=== PATIENT | female | born 1985 | race Asian ===

== ENCOUNTER 2019-12-28 17:07 | Emergency (ER) | payer OTHER, SELFPAY ==
[2019-12-28] VITALS (7 sets, daily range): BP systolic 113–153; BP diastolic 55–69; PULSE 82–125; RESP 16–18; TEMP 37.5–37.6; O2SAT 98–100; BMI 23.6
--- NOTE | 2019-12-28 17:39 | DI.RAD.S_ITS ---
PROCEDURE: XR CHEST 1V INDICATIONS: flu-like symptoms TECHNIQUE: One view of the chest was acquired. COMPARISON: None. FINDINGS: Surgical changes and devices: None. Lungs and pleura: Minimal opacity in the mid right lung field. No pleural effusions or pneumothorax. Mediastinum: Mediastinal contours appear normal. Heart size is normal. Bones and chest wall: No suspicious bony lesions. Overlying soft tissues appear unremarkable. IMPRESSION: Minimal opacity in the mid right lung field. This could represent infectious/inflammatory etiology including COVID or atelectasis. Dictated by: Aubrey Davies M.D. on 12/28/2019 at 18:48 Approved by: Aubrey Davies M.D. on 12/28/2019 at 18:49
[2019-12-28] MEDS: KETOROLAC 60 MG/2 ML VIAL 30 MG IV (18:02)
[2019-12-28] MEDS: ONDANSETRON 4 MG/2 ML INJ IV (18:03)
[2019-12-28] MEDS: SODIUM CHLORIDE 0.9% 1,000 ML 1000 ML IV (18:03)
[2019-12-28 18:11] LABS: Basophils Absolute Auto 100 /uL (0-100); Basophils Percent Auto 1.3 % (0-2); Eosinophils Absolute Auto 0 /uL (0-450); Eosinophils Percent Auto 0.4 % (2-4); Hematocrit 31.1 % (36-46); Hemoglobin 9.6 g/dL (12.0-16.0); Lymphocytes Absolute Auto 400 /uL (1100-4500); Mean Corpuscular HGB Conc 30.8 % (30-36); Mean Corpuscular Hemoglobin 18.8 PG (26-34); Mean Corpuscular Volume 60.9 fL (80-100); Monocytes Absolute Auto 1000 /uL (0-900); Monocytes Percent Auto 11.4 % (3-14); Neutrophils Absolute Auto 7200 /uL (1500-7000); Neutrophils Percent Auto 81.9 % (50-75); Platelet Count 127 X10^3/uL (150-400); Red Blood Cell Count 5.11 X10^6/uL (4.0-5.2); Red Cell Distribution Width 22.8 % (11.6-14.8); White Blood Cell Count 8.8 X10^3/uL (4.5-11.0)
[2019-12-28 18:13] LABS: Add Manual Diff / Slide Review SLIDE REVIEW
[2019-12-28 18:17] LABS: Alanine Aminotransferase 27 IU/L (<35); Albumin 4.7 g/dL (3.5-5.0); Albumin Globulin Ratio 1.4 (1.0-2.8); Alkaline Phosphatase 46 U/L (38-126); Aspartate Aminotransferase 31 IU/L (14-36); BUN Creatinine Ratio 19.2 (6-22); Bilirubin Total 2.4 mg/dL (0.2-1.3); Blood Urea Nitrogen 10 mg/dL (7-17); Carbon Dioxide 24 mmol/L (22-32); Chloride 100 mmol/L (98-107); Creatine Kinase 36 U/L (30-135); Estimated Glomerular Filt Rate > 60.0 mL/min (>60); Globulin 3.3 g/dL (1.7-4.1); Glucose 100 mg/dL (70-100); HEMOLYSIS < 15 (0-50); Potassium 3.4 mmol/L (3.4-5.1); Sodium 133 mmol/L (137-145)
[2019-12-28 18:28] LABS: C-Reactive Protein Quant < 0.5 mg/dL (<1.0)
[2019-12-28 18:29] LABS: NT-proBNP (BNP-Adult 18+) 35 pg/mL (<125); Troponin I < 0.012 ng/mL (0.01-0.034)
[2019-12-28 18:38] LABS: D Dimer < 200 ng/mL (<230)
--- NOTE | 2019-12-28 18:40 | ED.FEVER ---
HPI - Fever <MARCO A Arshad - Last Filed: 12/28/19 20:53> General Chief Complaint: Fever Stated Complaint: headache, 102 temp, sore, chest heaviness, nausea Time Seen by Provider: 12/28/19 17:12 Source: patient Mode of arrival: Ambulatory Limitations: no limitations History of Present Illness HPI Narrative: The patient is a 34-year-old female nonsmoker with history of thalassemia who presents with a chief complaint of headache, temperature of 102?, muscle aches chills, shortness of breath, difficulty breathing, and nausea. She was working as a caregiver, had sudden onset of symptoms at approximately 3:00 p.m.. She has no known coronavirus exposures, but is very worried about that. She took 2 Tylenol when she noticed her fevers at high. Denies any vomiting but did have an episode of nausea. No neck pain or sore throat. No ear pain. She denies any cough. She denies any abdominal pain. She denies any urinary symptoms. She does not have any primary care provider in the area she recently moved from [place]. Related Data Previous Rx's Medication Instructions Recorded ondansetron 4 mg PO Q6H PRN #14 tab 12/28/19 Allergies Allergy/AdvReac Type Severity Reaction Status Date / Time No Known Drug Allergies Allergy Verified 12/28/19 17:22 Review of Systems <JESSE Arshad - Last Filed: 12/28/19 20:53> Review of Systems Narrative: GENERAL: See HPI HEENT: Denies sinus pain, ear pain, sore throat, difficulty swallowing, dizziness. RESPIRATORY: See HPI CARDIOVASCULAR: See HPI GASTROINTESTINAL: See HPI : Denies dysuria, frequency, incontinence, hematuria, urinary retention. MUSCULOSKELETAL: denies weakness, joint pain, or bony pain SKIN: Denies rash, skin lesions, or other NEUROLOGIC: Denies weakness, headache, numbness, change in speech, confusion, seizures, incoordination. PSYCHIATRIC: No concerning psychosocial issues. 12 point review of systems is negative except for those stated above Patient History <MARCO A Arshad - Last Filed: 12/28/19 20:53> Social History Smoking Status: Never smoker Smoking Status: Never smoker alcohol intake frequency: holidays/special occasions only Substance Use Type: does not use Exam <JAMESON Arshad-ALVIN - Last Filed: 12/28/19 20:53> Narrative Exam Narrative: GENERAL: This is a well-nourished, well-developed patient, in no acute distress HEAD: Atraumatic. Normocephalic. No temporal or scalp tenderness. EYES: Pupils equal round and reactive. Extraocular motions intact. No scleral icterus. No injection or drainage. ENT: Nose without bleeding, purulent drainage or septal hematoma. Throat without erythema, tonsillar hypertrophy or exudate. Uvula midline. Airway patent. NECK: Trachea midline. No JVD or lymphadenopathy. Supple, nontender, no meningeal signs. Able to look is healing, able to put chin to chest. CARDIOVASCULAR: Tachycardic rate and regular rhythm RESPIRATORY: Clear to auscultation. Breath sounds equal bilaterally. No wheezes, rales, or rhonchi. No cough. No increased respiratory effort. No accessory muscle use. GASTROINTESTINAL: Abdomen soft, non-tender, nondistended. No hepato-splenomegaly, or palpable masses. No guarding. Active bowel sounds all 4 quadrants EXTREMITIES: No clubbing, cyanosis, or edema. No joint tenderness, effusion, or edema noted. BACK: Nontender without deformity or crepitance. No flank tenderness. NEURO: AOx3. SKIN: No rash or erythema on visible skin Initial Vital Signs Initial Vital Signs: Vital Signs Temperature 99.7 F H 12/28/19 17:20 Pulse Rate 125 H 12/28/19 17:20 Respiratory Rate 16 12/28/19 17:20 Blood Pressure 153/68 H 12/28/19 17:20 Pulse Oximetry 98 12/28/19 17:20 <Junior Sauceda DO - Last Filed: 12/28/19 23:35> Initial Vital Signs Initial Vital Signs: Vital Signs Temperature 99.7 F H 12/28/19 17:20 Pulse Rate 125 H 12/28/19 17:20 Respiratory Rate 16 12/28/19 17:20 Blood Pressure 153/68 H 12/28/19 17:20 Pulse Oximetry 98 12/28/19 17:20 Scores <JAMESON Arshad-BC - Last Filed: 12/28/19 20:53> GCS [place] coma scale eye opening: Spontaneous [place] coma scale verbal response: Orientated [place] coma scale motor response: Obey commands [place] coma scale total score: 15 Course <KHANH ArshadP-BC - Last Filed: 12/28/19 20:53> Orders Ordered: ED Orders 12/28/19 17:39 XR chest 1V Stat EKG-12 Lead Stat 12/28/19 17:55 C-Reactive Protein Quant Stat Complete Blood Count AUTO DIFF Stat Comprehensive Metabolic Panel Stat D Dimer Stat NT-proBNP (BNP-Adult 18+) Stat Procalcitonin Stat Troponin & CK Cardiac Panel Stat 12/28/19 19:12 CT chest wo con Stat Discontinued Medications Acetaminophen (Tylenol) 650 mg PO NOW ONE Stop: 12/28/19 18:51 Last Admin: 12/28/19 18:55 Dose: 650 mg Documented by: JYOTSNA Sodium Chloride (Normal Saline 0.9%) 1,000 mls @ 1,000 mls/hr IV BOLUS ONE Stop: 12/28/19 18:41 Last Infusion: 12/28/19 19:17 Dose: 0 mls/hr Documented by: Admin: 12/28/19 18:03 Dose: 1,000 mls/hr Documented by: TOMMIE Ketorolac Tromethamine (Toradol) 30 mg IV NOW ONE Stop: 12/28/19 17:40 Last Admin: 12/28/19 18:02 Dose: 30 mg Documented by: TOMMIE Ondansetron HCl (Zofran) 4 mg IV NOW ONE Stop: 12/28/19 17:43 Last Admin: 12/28/19 18:03 Dose: 4 mg Documented by: TOMMIE Vital Signs Vital signs: Vital Signs - 8 hr 12/28/19 17:20 12/28/19 17:23 12/28/19 17:30 Temperature 99.7 F H Pulse Rate 125 H 118 H 114 H Respiratory Rate 16 Blood Pressure 153/68 H Pulse Oximetry 98 99 100 12/28/19 18:09 12/28/19 18:30 12/28/19 19:00 Temperature Pulse Rate 104 H 97 H 92 H Respiratory Rate Blood Pressure 113/55 L 115/69 Pulse Oximetry 98 100 100 12/28/19 20:47 Temperature 99.5 F Pulse Rate 82 Respiratory Rate 18 Blood Pressure 113/64 Pulse Oximetry 99 <Junior Sauceda DO - Last Filed: 12/28/19 23:35> Orders Ordered: ED Orders 12/28/19 17:39 XR chest 1V Stat EKG-12 Lead Stat 12/28/19 17:55 C-Reactive Protein Quant Stat Complete Blood Count AUTO DIFF Stat Comprehensive Metabolic Panel Stat D Dimer Stat NT-proBNP (BNP-Adult 18+) Stat Procalcitonin Stat Troponin & CK Cardiac Panel Stat 12/28/19 19:12 CT chest wo con Stat Discontinued Medications Acetaminophen (Tylenol) 650 mg PO NOW ONE Stop: 12/28/19 18:51 Last Admin: 12/28/19 18:55 Dose: 650 mg Documented by: JYOTSNA Sodium Chloride (Normal Saline 0.9%) 1,000 mls @ 1,000 mls/hr IV BOLUS ONE Stop: 12/28/19 18:41 Last Infusion: 12/28/19 19:17 Dose: 0 mls/hr Documented by: Admin: 12/28/19 18:03 Dose: 1,000 mls/hr Documented by: TOMMIE Ketorolac Tromethamine (Toradol) 30 mg IV NOW ONE Stop: 12/28/19 17:40 Last Admin: 12/28/19 18:02 Dose: 30 mg Documented by: TOMMIE Ondansetron HCl (Zofran) 4 mg IV NOW ONE Stop: 12/28/19 17:43 Last Admin: 12/28/19 18:03 Dose: 4 mg Documented by: TOMMIE Vital Signs Vital signs: Vital Signs - 8 hr 12/28/19 17:20 12/28/19 17:23 12/28/19 17:30 Temperature 99.7 F H Pulse Rate 125 H 118 H 114 H Respiratory Rate 16 Blood Pressure 153/68 H Pulse Oximetry 98 99 100 12/28/19 18:09 12/28/19 18:30 12/28/19 19:00 Temperature Pulse Rate 104 H 97 H 92 H Respiratory Rate Blood Pressure 113/55 L 115/69 Pulse Oximetry 98 100 100 12/28/19 20:47 Temperature 99.5 F Pulse Rate 82 Respiratory Rate 18 Blood Pressure 113/64 Pulse Oximetry 99 MDM - Fever <MARCO A Arshad - Last Filed: 12/28/19 20:53> Lab Data Result diagrams: 12/28/19 17:55 12/28/19 17:55 Labs: Lab Results 12/28/19 12/28/19 12/28/19 Range/Units 17:55 17:55 17:55 WBC 8.8 (4.5-11.0) X10^3/uL RBC 5.11 (4.0-5.2) X10^6/uL Hgb 9.6 L (12.0-16.0) g/dL Hct 31.1 L (36-46) % MCV 60.9 L (80-100) fL MCH 18.8 L (26-34) PG MCHC 30.8 (30-36) % RDW 22.8 H (11.6-14.8) % Plt Count 127 L (150-400) X10^3/uL Neut % (Auto) 81.9 H (50-75) % Lymph % (Auto) 5.0 L (25-40) % [place] % (Auto) 11.4 (3-14) % Eos % (Auto) 0.4 L (2-4) % Baso % (Auto) 1.3 (0-2) % Neut # (Auto) 7200 H (7203-5931) /uL Lymph # (Auto) 400 L (5345-1609) /uL [place] # (Auto) 1000 H (0-900) /uL Eos # (Auto) 0 (0-450) /uL Baso # (Auto) 100 (0-100) /uL Platelet Estimate Decreased on smear RBC Morphology See below Polychromasia 2+ H Hypochromasia 3+ H Microcytosis 2+ H Spherocytes 1+ H Target Cells 2+ H Tear Drop Cells 1+ H Schistocytes 1+ H D-Dimer < 200 (<230) ng/mL Sodium 133 L (137-145) mmol/L Potassium 3.4 (3.4-5.1) mmol/L Chloride 100 (98-107) mmol/L Carbon Dioxide 24 (22-32) mmol/L BUN 10 (7-17) mg/dL Creatinine 0.52 (0.52-1.04) mg/dL Estimated GFR > 60.0 (>60) mL/min BUN/Creatinine Ratio 19.2 (6-22) Glucose 100 (70-100) mg/dL Calcium 9.0 (8.4-10.2) mg/dL Total Bilirubin 2.4 H (0.2-1.3) mg/dL AST 31 (14-36) IU/L ALT 27 (<35) IU/L Alkaline Phosphatase 46 (38-126) U/L Total Creatine Kinase 36 (30-135) U/L CK-MB (CK-2) TNP CK-MB (CK-2) Rel Index TNP Troponin I < 0.012 (0.01-0.034) ng/mL C-Reactive Protein (<1.0) mg/dL NT-Pro-B Natriuret Pep 35 (<125) pg/mL Total Protein 8.0 (6.3-8.2) g/dL Albumin 4.7 (3.5-5.0) g/dL Globulin 3.3 (1.7-4.1) g/dL Albumin/Globulin Ratio 1.4 (1.0-2.8) Procalcitonin (<0.5) ng/mL 12/28/19 12/28/19 Range/Units 17:55 17:55 WBC (4.5-11.0) X10^3/uL RBC (4.0-5.2) X10^6/uL Hgb (12.0-16.0) g/dL Hct (36-46) % MCV (80-100) fL MCH (26-34) PG MCHC (30-36) % RDW (11.6-14.8) % Plt Count (150-400) X10^3/uL Neut % (Auto) (50-75) % Lymph % (Auto) (25-40) % [place] % (Auto) (3-14) % Eos % (Auto) (2-4) % Baso % (Auto) (0-2) % Neut # (Auto) (8276-2926) /uL Lymph # (Auto) (2895-1603) /uL [place] # (Auto) (0-900) /uL Eos # (Auto) (0-450) /uL Baso # (Auto) (0-100) /uL Platelet Estimate RBC Morphology Polychromasia Hypochromasia Microcytosis Spherocytes Target Cells Tear Drop Cells Schistocytes D-Dimer (<230) ng/mL Sodium (137-145) mmol/L Potassium (3.4-5.1) mmol/L Chloride (98-107) mmol/L Carbon Dioxide (22-32) mmol/L BUN (7-17) mg/dL Creatinine (0.52-1.04) mg/dL Estimated GFR (>60) mL/min BUN/Creatinine Ratio (6-22) Glucose (70-100) mg/dL Calcium (8.4-10.2) mg/dL Total Bilirubin (0.2-1.3) mg/dL AST (14-36) IU/L ALT (<35) IU/L Alkaline Phosphatase (38-126) U/L Total Creatine Kinase (30-135) U/L CK-MB (CK-2) CK-MB (CK-2) Rel Index Troponin I (0.01-0.034) ng/mL C-Reactive Protein < 0.5 (<1.0) mg/dL NT-Pro-B Natriuret Pep (<125) pg/mL Total Protein (6.3-8.2) g/dL Albumin (3.5-5.0) g/dL Globulin (1.7-4.1) g/dL Albumin/Globulin Ratio (1.0-2.8) Procalcitonin 0.74 H (<0.5) ng/mL Point of Care Testing Test Results Negative Urine Dip Bedside Urine Glucose Negative Bedside Urine Bilirubin - Negative Bedside Urine Ketone +/- 5 Urine Specific [place] 1.015 Bedside Urine Occult Blood - Negative Bedside Urine pH 5.5 Bedside Urine Protein - Negative Bedside Urine Urobilinogen - Negative Bedside Urine Nitrite - Negative Bedside Urine Leukocytes - Negative Esterase Imaging Data CT scan - chest: Radiologist's Impression: [address] [place] [id number] XRay Report Signed Patient: Dede CarlR#: [id number] : 1985Acct:[id number] Age/Sex: 34 / FDate of Service: 12/28/19 Loc: ED Accession Number: [id number] Procedure: XR chest 1V Ordering Provider: Luanne Sharma- PROCEDURE: XR CHEST 1V INDICATIONS: flu-like symptoms TECHNIQUE: One view of the chest was acquired. COMPARISON: None. FINDINGS: Surgical changes and devices: None. Lungs and pleura: Minimal opacity in the mid right lung field. No pleural effusions or pneumothorax. Mediastinum: Mediastinal contours appear normal. Heart size is normal. Bones and chest wall: No suspicious bony lesions. Overlying soft tissues appear unremarkable. IMPRESSION: Minimal opacity in the mid right lung field. This could represent infectious/inflammatory etiology including COVID or atelectasis. Dictated by: Aubrey Davies M.D. on 12/28/2019 at 18:48 Approved by: Aubrey Davies M.D. on 12/28/2019 at 18:49 Chest x-ray: Radiologist's Impression: [address] [place] [id number] Scan Report Signed Patient: Dede Carl#: [id number] : 1985Acct:[id number] Age/Sex: 34 / FDate of Service: 12/28/19 Loc: ED Accession Number: [id number] Procedure: CT chest wo con Ordering Provider: Luanne Sharma- PROCEDURE: CT CHEST WO CON INDICATIONS: right midlung opacity ?covid TECHNIQUE: Noncontrast 2.0-2.5 mm thick sections acquired from the pulmonary apices to the posterior costophrenic angles. 7 mm thick axial MIP and 5 mm coronal and sagittal reformats were then acquired. A low radiation dose technique was utilized. COMPARISON: None. FINDINGS: Image quality: Diagnostic, given the low radiation dose technique. Lungs and pleura: There is minimal streaky opacity at the right upper lobe as well as at the left lung base. This has the appearance of atelectasis. No patchy ground-glass opacity to suggest significant infectious/inflammatory etiologies such as Covid-19. No consolidative opacity. No pleural effusion. No pneumothorax. No mass or significant pulmonary nodules. 3 mm pulmonary nodule at the left major fissure. Mediastinum: Heart size is normal. No pericardial effusion. No mediastinal adenopathy by size criteria. Thoracic aorta and central pulmonary arteries are normal in size. Esophagus is normal in caliber. No hiatal hernia. Bones and chest wall: No suspicious bony lesions. No vertebral body compression fractures. No axillary or supraclavicular adenopathy by size criteria. Thyroid gland is unremarkable. Abdomen: Post cholecystectomy. Visualized upper abdomen solid organs and bowel loops appear normal in the absence of contrast. IMPRESSION: Minimal streaky opacity in the right upper lobe and left lower lung which has the appearance of atelectasis. No significant ground-glass opacity to suggest infectious/inflammatory etiology. Dictated by: Aubrey Davies M.D. on 12/28/2019 at 19:46 Approved by: Aubrey Davies M.D. on 12/28/2019 at 19:51 ECG Data Attestation: I personally reviewed and interpreted this ECG as follows: Interpretation: Sinus rhythm. Ventricular rate 80. pr 173. qr s86 MDM Narrative Medical decision making narrative: The patient is a 34-year-old female who presents with sudden-onset shortness of breath, fever, nausea no vomiting. Her presentation is suspicious for coronavirus at this point time. Chest x-ray as possible mid lung opacity on right side, CT shows no ground-glass opacities. Otherwise urine has no signs of infection, patient overall appears well and feels much improved after doses of Tylenol and IV fluids. She has no meningeal signs,. I discussed at length the importance of following up with primary care provider gave the patient contact information to the [facility] health technology resource teacher. I discussed that she does have an incidental finding of a pulmonary nodule that will need follow-up. Patient overall feels much improved. Work note given. Did discuss at length acting as though she is sick until her coronavirus test comes back. Discussed coming back to the emergency department for any acute concerns. Patient has no questions or concerns upon discharge and states understanding of return precautions as well as follow-up care. <Junior Sauceda, DO - Last Filed: 12/28/19 23:35> Lab Data Labs: Lab Results 12/28/19 12/28/19 12/28/19 Range/Units 17:55 17:55 17:55 WBC 8.8 (4.5-11.0) X10^3/uL RBC 5.11 (4.0-5.2) X10^6/uL Hgb 9.6 L (12.0-16.0) g/dL Hct 31.1 L (36-46) % MCV 60.9 L (80-100) fL MCH 18.8 L (26-34) PG MCHC 30.8 (30-36) % RDW 22.8 H (11.6-14.8) % Plt Count 127 L (150-400) X10^3/uL Neut % (Auto) 81.9 H (50-75) % Lymph % (Auto) 5.0 L (25-40) % [place] % (Auto) 11.4 (3-14) % Eos % (Auto) 0.4 L (2-4) % Baso % (Auto) 1.3 (0-2) % Neut # (Auto) 7200 H (2022-0194) /uL Lymph # (Auto) 400 L (3080-6385) /uL [place] # (Auto) 1000 H (0-900) /uL Eos # (Auto) 0 (0-450) /uL Baso # (Auto) 100 (0-100) /uL Platelet Estimate Decreased on smear RBC Morphology See below Polychromasia 2+ H Hypochromasia 3+ H Microcytosis 2+ H Spherocytes 1+ H Target Cells 2+ H Tear Drop Cells 1+ H Schistocytes 1+ H D-Dimer < 200 (<230) ng/mL Sodium 133 L (137-145) mmol/L Potassium 3.4 (3.4-5.1) mmol/L Chloride 100 (98-107) mmol/L Carbon Dioxide 24 (22-32) mmol/L BUN 10 (7-17) mg/dL Creatinine 0.52 (0.52-1.04) mg/dL Estimated GFR > 60.0 (>60) mL/min BUN/Creatinine Ratio 19.2 (6-22) Glucose 100 (70-100) mg/dL Calcium 9.0 (8.4-10.2) mg/dL Total Bilirubin 2.4 H (0.2-1.3) mg/dL AST 31 (14-36) IU/L ALT 27 (<35) IU/L Alkaline Phosphatase 46 (38-126) U/L Total Creatine Kinase 36 (30-135) U/L CK-MB (CK-2) TNP CK-MB (CK-2) Rel Index TNP Troponin I < 0.012 (0.01-0.034) ng/mL C-Reactive Protein (<1.0) mg/dL NT-Pro-B Natriuret Pep 35 (<125) pg/mL Total Protein 8.0 (6.3-8.2) g/dL Albumin 4.7 (3.5-5.0) g/dL Globulin 3.3 (1.7-4.1) g/dL Albumin/Globulin Ratio 1.4 (1.0-2.8) Procalcitonin (<0.5) ng/mL 12/28/19 12/28/19 Range/Units 17:55 17:55 WBC (4.5-11.0) X10^3/uL RBC (4.0-5.2) X10^6/uL Hgb (12.0-16.0) g/dL Hct (36-46) % MCV (80-100) fL MCH (26-34) PG MCHC (30-36) % RDW (11.6-14.8) % Plt Count (150-400) X10^3/uL Neut % (Auto) (50-75) % Lymph % (Auto) (25-40) % [place] % (Auto) (3-14) % Eos % (Auto) (2-4) % Baso % (Auto) (0-2) % Neut # (Auto) (6306-2516) /uL Lymph # (Auto) (0989-1890) /uL [place] # (Auto) (0-900) /uL Eos # (Auto) (0-450) /uL Baso # (Auto) (0-100) /uL Platelet Estimate RBC Morphology Polychromasia Hypochromasia Microcytosis Spherocytes Target Cells Tear Drop Cells Schistocytes D-Dimer (<230) ng/mL Sodium (137-145) mmol/L Potassium (3.4-5.1) mmol/L Chloride (98-107) mmol/L Carbon Dioxide (22-32) mmol/L BUN (7-17) mg/dL Creatinine (0.52-1.04) mg/dL Estimated GFR (>60) mL/min BUN/Creatinine Ratio (6-22) Glucose (70-100) mg/dL Calcium (8.4-10.2) mg/dL Total Bilirubin (0.2-1.3) mg/dL AST (14-36) IU/L ALT (<35) IU/L Alkaline Phosphatase (38-126) U/L Total Creatine Kinase (30-135) U/L CK-MB (CK-2) CK-MB (CK-2) Rel Index Troponin I (0.01-0.034) ng/mL C-Reactive Protein < 0.5 (<1.0) mg/dL NT-Pro-B Natriuret Pep (<125) pg/mL Total Protein (6.3-8.2) g/dL Albumin (3.5-5.0) g/dL Globulin (1.7-4.1) g/dL Albumin/Globulin Ratio (1.0-2.8) Procalcitonin 0.74 H (<0.5) ng/mL Point of Care Testing Test Results Negative Urine Dip Bedside Urine Glucose Negative Bedside Urine Bilirubin - Negative Bedside Urine Ketone +/- 5 Urine Specific [place] 1.015 Bedside Urine Occult Blood - Negative Bedside Urine pH 5.5 Bedside Urine Protein - Negative Bedside Urine Urobilinogen - Negative Bedside Urine Nitrite - Negative Bedside Urine Leukocytes - Negative Esterase Discharge Plan Departure Patient Disposition: Home Clinical Impression: Incidental pulmonary nodule Fever Qualifiers: Fever type: unspecified Qualified Code(s): R50.9 - Fever, unspecified Discharge Date/Time: 12/28/19 20:47 Instructions: DI for Fever (Symptom) -- Adult, DI for Pulmonary Nodule, DI for COVID-19 (Suspected or Confirmed ), Can COVID-19 be prevented? Activity Restrictions/Additional Instructions: Thank you for trusting us with your care today. I am sorry your feeling poorly and hope you feel better soon. I sent a prescription of ondansetron for nausea to [facility] in [place] I have given you a work note for several days off of work. As discussed, your coronavirus test will take approximately 2 days to come back. We will call you with the results come in, whether they are positive or negative. In the meantime, please use [id number] medications as needed and able. We did have an incidental finding of a 3 mm pulmonary nodule of your left lung. Please follow-up with primary care provider regarding this. Please act as though you are sick, please self isolate cover your cough since these is etcetera. As discussed please come back to emergency department for any acute concerns such as increased shortness of breath etcetera Prescriptions: New ondansetron 4 mg tablet,disintegrating 4 mg PO Q6H PRN (Reason: nausea and vomiting) Qty: 14 RF: 0 Referrals: [facility] [Outside] Stand Alone Forms: Work Release Note <Junior Sauceda DO - Last Filed: 12/28/19 23:35> Cosign ED Attending Cosignature Attestation: I was immediately available in the department for consultation. This documentation has been reviewed and I agree with assessment and plan. Supervised by Junior Sauceda DO
[2019-12-28 18:47] LABS: Hypochromasia 3+; Platelet Estimate Decreased on smear
[2019-12-28 18:48] LABS: Microcytosis 2+; Polychromasia 2+; Target Cells 2+; Tear Drop Cells 1+
[2019-12-28 18:49] LABS: Schistocytes 1+; Spherocytes 1+
[2019-12-28 18:54] LABS: Procalcitonin 0.74 ng/mL (<0.5)
[2019-12-28] MEDS: ACETAMINOPHEN 325 MG TABLET 650 MG PO (18:55)
--- NOTE | 2019-12-28 19:12 | DI.CT.S_ITS ---
PROCEDURE: CT CHEST WO CON INDICATIONS: right midlung opacity ?covid TECHNIQUE: Noncontrast 2.0-2.5 mm thick sections acquired from the pulmonary apices to the posterior costophrenic angles. 7 mm thick axial MIP and 5 mm coronal and sagittal reformats were then acquired. A low radiation dose technique was utilized. COMPARISON: None. FINDINGS: Image quality: Diagnostic, given the low radiation dose technique. Lungs and pleura: There is minimal streaky opacity at the right upper lobe as well as at the left lung base. This has the appearance of atelectasis. No patchy ground-glass opacity to suggest significant infectious/inflammatory etiologies such as Covid-19. No consolidative opacity. No pleural effusion. No pneumothorax. No mass or significant pulmonary nodules. 3 mm pulmonary nodule at the left major fissure. Mediastinum: Heart size is normal. No pericardial effusion. No mediastinal adenopathy by size criteria. Thoracic aorta and central pulmonary arteries are normal in size. Esophagus is normal in caliber. No hiatal hernia. Bones and chest wall: No suspicious bony lesions. No vertebral body compression fractures. No axillary or supraclavicular adenopathy by size criteria. Thyroid gland is unremarkable. Abdomen: Post cholecystectomy. Visualized upper abdomen solid organs and bowel loops appear normal in the absence of contrast. IMPRESSION: Minimal streaky opacity in the right upper lobe and left lower lung which has the appearance of atelectasis. No significant ground-glass opacity to suggest infectious/inflammatory etiology. Dictated by: Aubrey Davies M.D. on 12/28/2019 at 19:46 Approved by: Aubrey Davies M.D. on 12/28/2019 at 19:51
[2019-12-31 11:36] LABS: COVID19 Sendout Not Detected (Not Detected)
== END 2019-12-28 20:47 | disposition home or self-care (01) ==
PROVIDERS: Emergency Provider Nurse Practitioner Family
DX: Z03.818 Encounter for observation for suspected exposure to other biological agents ruled out (principal); R91.1 Solitary pulmonary nodule; R50.9 Fever, unspecified; R06.02 Shortness of breath; R11.0 Nausea
CPT/HCPCS: 36415; 71045; 71250; 80053; 81003; 81025; 82550; 83880; 84145; 84484; 85025; 85379; 86140; 87635; 93005; 96361; 96374; 96375; 99284; J1885; J2405

== ENCOUNTER 2020-08-13 14:40 | Emergency (ER) | payer OTHER, SELFPAY ==
[2020-08-13 14:43] VITALS: BP 153/70; PULSE 75; RESP 22; TEMP 37.1; O2SAT 100
--- NOTE | 2020-08-13 15:05 | DI.CT.S_ITS ---
PROCEDURE: CT HEAD/BRAIN WO CON INDICATIONS: severe headache for one week TECHNIQUE: Noncontrast 4.5 mm thick angled axial sections acquired from the foramen magnum to the vertex, with coronal and sagittal reformats. For radiation dose reduction, the following was used: automated exposure control, adjustment of mA and/or kV according to patient size. COMPARISON: None. FINDINGS: Image quality: Excellent. CSF spaces: Basal cisterns are patent. No extra-axial fluid collections. Ventricles are normal in size and shape. Brain: No midline shift. No intracranial masses or hemorrhage. Nicholson-white matter interface is normal. Skull and face: Calvarium and visualized facial bones are intact, without suspicious lesions. Sinuses: Visualized sinuses and mastoids are clear. IMPRESSION: No acute intracranial abnormality. Dictated by: Nolan Mendoza M.D. on 08/13/2020 at 15:20 Approved by: Nolan Mendoza M.D. on 08/13/2020 at 15:21
[2020-08-13] MEDS: METOCLOPRAMIDE 10 MG/2 ML INJ IV (15:20)
[2020-08-13] MEDS: SODIUM CHLORIDE 0.9% 1,000 ML 1000 ML IV (15:20)
[2020-08-13] MEDS: KETOROLAC 60 MG/2 ML VIAL 15 MG IV (15:20)
[2020-08-13] MEDS: diphenhydrAMINE 50 MG/ML VIAL 25 MG IV (15:24)
[2020-08-13 15:47] LABS: BUN Creatinine Ratio 29.8 (6-22); Blood Urea Nitrogen 14 mg/dL (7-17); Calcium 8.9 mg/dL (8.4-10.2); Carbon Dioxide 27 mmol/L (22-32); Chloride 101 mmol/L (98-107); Estimated Glomerular Filt Rate > 60.0 mL/min (>60); Glucose 88 mg/dL (70-100); HEMOLYSIS < 15 (0-50); Potassium 3.7 mmol/L (3.4-5.1); Sodium 136 mmol/L (137-145)
--- NOTE | 2020-08-13 15:50 | ED.HA ---
HPI - Headache <ARYA Gerber - Last Filed: 08/13/20 18:58> General Chief Complaint: Headache Stated Complaint: bad headache lasting for a few days, nauseated Time Seen by Provider: 08/13/20 14:52 Source: patient Mode of arrival: Ambulatory Limitations: no limitations History of Present Illness HPI Narrative: This is a 35 year female, nonsmoker, who has past medical history for thalassemia, environmental allergies and uses albuterol regularly presents to ED with chief complain of 1 week duration of severe headache, all over in her head. Patient reports starting to have nausea and 3 episodes of vomiting today. She also reports dizziness and spinning sensation which does not make difference with movements of her head and describes as foggy and hazy in the head. She has been using Tylenol 1000 mg up to 2 times a day to treat headache but not effective. Patient unilateral headaches in the past and usually improves after taking a dose of Tylenol. Patient denies fever, chills, recent illness, known exposure to illness, unusual rashes. Patient received COVID vaccination 2 weeks ago. Patient had Mirena in placed and has her as a ride. She declined test stating no chances for the . Onset (ago): day(s) Related Data Previous Rx's Medication Instructions Recorded ondansetron 4 mg PO Q6H PRN #14 tab 12/28/19 ondansetron 4 mg PO Q8H PRN #7 tab 08/13/20 Allergies Allergy/AdvReac Type Severity Reaction Status Date / Time No Known Drug Allergies Allergy Verified 12/28/19 17:22 Review of Systems <ARYA Gerber - Last Filed: 08/13/20 18:58> Review of Systems Narrative: General: Denies fever, chills, fatigue, malaise, sweats. HEENT: Denies sinus pain, ear pain, sore throat, difficulty swallowing, dizziness. Respiratory: Denies dyspnea, cough, wheezing, hemoptysis, sputum. Cardiovascular: Denies chest pain, palpitations, orthopnea, edema. Gastrointestinal: See HPI : Denies dysuria, frequency, incontinence, hematuria, urinary retention. Musculoskeletal: Denies weakness, joint pain or bony pain. Skin: Denies rash, skin lesions, or other. Neurologic: See HPI Psychiatric: No concerning psychosocial issues. 12-point review of systems is negative except for those stated above. Patient History <ARYA Gerber - Last Filed: 08/13/20 18:58> Social History Smoking Status: Never smoker Smoking Status: Never smoker alcohol intake frequency: holidays/special occasions only Substance Use Type: does not use Exam <ARYA Gerber - Last Filed: 08/13/20 18:58> Narrative Exam Narrative: GEN: Alert, oriented x 3, well nourished, and appears to be in moderate discomfort. Head: Normal cephalic, atraumatic. No scalp or temporal tenderness, palpable mass or rash. EYES: Pupils are equal, round, and reactive to light and accommodation. Extraocular muscles are intact bilaterally. There is no subconjunctival hemorrhage, exudate and sclera non-icteric. ENT: Bilateral auditory canals and tympanic membranes clear. Hearing grossly intact. Nose without bleeding, purulent discharge, septal hematoma or deviation. Turbinate without erythema or swelling. Facial sinuses nontender to palpate. Mucous membrane moist, no mucosal lesion. Throat without erythema, tonsillar hypertrophy or exudate. Uvula in midline, airway patent. Neck: Trachea in midline. No JVD, non-tender without lymphadenopathy. No masses or thyroid megaly. Supple, non-tender and no meningeal signs. CARDIAC: Normal regular rate and rhythm without murmurs, gallops, or rubs. No chest wall tenderness. No peripheral edema, cyanosis or pallor. Capillary refill is less than 2 seconds. No carotid bruits. RESPIRATORY: Lungs are cleat to auscultate bilaterally. No cough, wheezes, rales, or rhonchi. No stridor, respiratory distress, increase work of breathing, or accessary muscle used. ABD: Abdomen soft, nontender and non-distended. No guarding or rebound tenderness to palpate. Bowel sounds are normal in all 4 quadrants. There is no palpable masses or organomegaly. EXT: Full painless ROM of all extremities with no loss of sensation, strength, effusion or edema. SKIN: Warm, dry, normal color for patient. No erythema, lesions or rash. BACK: Nontender without deformity or crepitance. No flank tenderness. NEUROLOGICAL: Alert and oriented to place, time and person. No facial droops, dysphasia. CN II-XII intact. Strength and sensation symmetric and intact throughout. PSYCHIATRIC: Good judgement and reason, without hallucinations, abnormal affect or abnormal behaviors during the examination. Patient is not suicidal. Initial Vital Signs Initial Vital Signs: Vital Signs Temperature 98.7 F 08/13/20 14:43 Pulse Rate 75 08/13/20 14:43 Respiratory Rate 22 08/13/20 14:43 Blood Pressure 153/70 H 08/13/20 14:43 Pulse Oximetry 100 08/13/20 14:43 <Junior Sauceda DO - Last Filed: 08/14/20 17:54> Initial Vital Signs Initial Vital Signs: Vital Signs Temperature 98.7 F 08/13/20 14:43 Pulse Rate 75 08/13/20 14:43 Respiratory Rate 22 08/13/20 14:43 Blood Pressure 153/70 H 08/13/20 14:43 Pulse Oximetry 100 08/13/20 14:43 Scores <ARYA Gerber - Last Filed: 08/13/20 18:58> GCS [place] coma scale eye opening: Spontaneous [place] coma scale verbal response: Orientated [place] coma scale motor response: Obey commands [place] coma scale total score: 15 NIH Stroke Scale Level of Conciousness: Alert, keenly responsive Ask month/age: Answers both questions correctly. Open/close eyes, close hand: Performs both tasks correctly Best gaze horizontal: Normal Visual holt: No visual loss Facial palsy: Normal symetrical movement Left arm drift: No drift for full 10 sec Right arm drift: No drift for full 10 sec Left leg drift: No drift for full 5 sec Right leg drift: No drift for full 5 sec Limb ataxia: Absent Sensory on face/arms/legs: Normal, no sensory loss Best language: No aphasia, normal Dysarthria: Normal Extinction or inattention: No abnormality Total NIH Stroke scale score: 0 Course <ARYA Gerber - Last Filed: 08/13/20 18:58> Orders Ordered: Discontinued Medications Diphenhydramine HCl (Diphenhydramine 50 Mg/Ml Vial) 25 mg IV NOW ONE Stop: 08/13/20 15:06 Last Admin: 08/13/20 15:24 Dose: 25 mg Documented by: BTONER Sodium Chloride (Normal Saline 0.9%) 1,000 mls @ 1,000 mls/hr IV BOLUS ONE Stop: 08/13/20 16:04 Last Infusion: 08/13/20 17:30 Dose: 1,000 mls/hr Documented by: Admin: 08/13/20 15:20 Dose: 1,000 mls/hr Documented by: BTONER Ketorolac Tromethamine (Ketorolac 60 Mg/2 Ml Vial) 15 mg IV NOW ONE Stop: 08/13/20 15:09 Last Admin: 08/13/20 15:20 Dose: 15 mg Documented by: ANAONER Metoclopramide HCl (Metoclopramide 10 Mg/2 Ml Inj) 10 mg IV NOW ONE Stop: 08/13/20 15:06 Last Admin: 08/13/20 15:20 Dose: 10 mg Documented by: BTONER Reevaluation(s) Reevaluation #1: Patient reports headache and nausea improved at this time and is able to tolerate ice chips. Time: 17:07 Vital Signs Vital signs: Vital Signs - 8 hr 08/13/20 14:43 08/13/20 17:38 Temperature 98.7 F 98.3 F Pulse Rate 75 72 Respiratory Rate 22 17 Blood Pressure 153/70 H 114/71 Pulse Oximetry 100 100 <Junior Sauceda DO - Last Filed: 08/14/20 17:54> Orders Ordered: Discontinued Medications Diphenhydramine HCl (Diphenhydramine 50 Mg/Ml Vial) 25 mg IV NOW ONE Stop: 08/13/20 15:06 Last Admin: 08/13/20 15:24 Dose: 25 mg Documented by: ANAONER Sodium Chloride (Normal Saline 0.9%) 1,000 mls @ 1,000 mls/hr IV BOLUS ONE Stop: 08/13/20 16:04 Last Infusion: 08/13/20 17:30 Dose: 1,000 mls/hr Documented by: Admin: 08/13/20 15:20 Dose: 1,000 mls/hr Documented by: BTONER Ketorolac Tromethamine (Ketorolac 60 Mg/2 Ml Vial) 15 mg IV NOW ONE Stop: 08/13/20 15:09 Last Admin: 08/13/20 15:20 Dose: 15 mg Documented by: BTONER Metoclopramide HCl (Metoclopramide 10 Mg/2 Ml Inj) 10 mg IV NOW ONE Stop: 08/13/20 15:06 Last Admin: 08/13/20 15:20 Dose: 10 mg Documented by: ANAONER Vital Signs Vital signs: Vital Signs - 8 hr 08/13/20 14:43 08/13/20 17:38 Temperature 98.7 F 98.3 F Pulse Rate 75 72 Respiratory Rate 22 17 Blood Pressure 153/70 H 114/71 Pulse Oximetry 100 100 MDM - Headache <Bryn Riggs-Ingrid [employer] - Last Filed: 08/13/20 18:58> Differential Diagnosis Differential diagnosis: Likely tension headache, subarachnoid hemorrhage, headache, sinusitis and other Medical Records Attestation: I reviewed the patient's medical records. Lab Data Attestation: I reviewed the patient's lab results. Result diagrams: 08/13/20 15:10 08/13/20 15:10 Labs: Lab Results 08/13/20 08/13/20 08/13/20 Range/Units 15:10 15:10 15:10 WBC 6.6 (4.5-11.0) X10^3/uL RBC 5.28 H (4.0-5.2) X10^6/uL Hgb 9.5 L (12.0-16.0) g/dL Hct 32.0 L (36-46) % MCV 60.6 L (80-100) fL MCH 18.0 L (26-34) PG MCHC 29.8 L (30-36) % RDW 20.9 H (11.6-14.8) % Plt Count 187 (150-400) X10^3/uL Neut % (Auto) Not Reportable Lymph % (Auto) Not Reportable [place] % (Auto) Not Reportable Eos % (Auto) Not Reportable Baso % (Auto) Not Reportable Lymph # (Auto) Not Reportable [place] # (Auto) Not Reportable Baso # (Auto) Not Reportable Total Counted 100 Seg Neutrophils % 57.0 (38-70) % Lymphocytes % (Manual) 38.0 (25-45) % Atypical Lymphs % 2.0 H ( - 0) % Monocytes % (Manual) 2.0 (2-11) % Basophils % (Manual) 1.0 (0-1) % Neutrophils # (Manual) 3762 ([id number]) /uL Nucleated RBCs 1 H ( - 0) #/Diff Smudge Cells 1+ H RBC Morphology See below Hypochromasia 3+ H Poikilocytosis 2+ H Anisocytosis 2+ H Microcytosis 2+ H Target Cells 2+ H Tear Drop Cells 2+ H Ovalocytes 2+ H Sodium 136 L (137-145) mmol/L Potassium 3.7 (3.4-5.1) mmol/L Chloride 101 (98-107) mmol/L Carbon Dioxide 27 (22-32) mmol/L BUN 14 (7-17) mg/dL Creatinine 0.47 L (0.52-1.04) mg/dL Estimated GFR > 60.0 (>60) mL/min BUN/Creatinine Ratio 29.8 H (6-22) Glucose 88 (70-100) mg/dL Calcium 8.9 (8.4-10.2) mg/dL Magnesium 2.2 (1.6-2.3) mg/dL Imaging Data CT scan - head: Radiologist's Impression: [address] Scan ReportSigned Patient: Dede CarlR#: [id number]: 1985Acct:[id number]/Sex: 35 / FDate of Service: 08/13/20Loc: EDAccession Number: [id number] Procedure: CT head/brain wo con Ordering Provider: Bryn Brown PROCEDURE: CT HEAD/BRAIN WO CON INDICATIONS: severe headache for one week TECHNIQUE: Noncontrast 4.5 mm thick angled axial sections acquired from the foramen magnum to the vertex, with coronal and sagittal reformats. For radiation dose reduction, the following was used: automated exposure control, adjustment of mA and/or kV according to patient size. COMPARISON: None. FINDINGS: Image quality: Excellent. CSF spaces: Basal cisterns are patent. No extra-axial fluid collections. Ventricles are normal in size and shape. Brain: No midline shift. No intracranial masses or hemorrhage. Nicholson-white matter interface is normal. Skull and face: Calvarium and visualized facial bones are intact, without suspicious lesions. Sinuses: Visualized sinuses and mastoids are clear. IMPRESSION: No acute intracranial abnormality. Dictated by: Nolan Mendoza M.D. on 08/13/2020 at 15:20 Approved by: Nolan Mendoza M.D. on 08/13/2020 at 15:21 [facility] Narrative Medical decision making narrative: This is a 35-year-old female who presents to ED with her with chief complain of severe headache for one week in all over head and today she had nausea and 3 episodes of vomiting. Patient is afebrile with normal heart rate and slightly hypertensive. NIHSS score is 0. Given patient has not had similar headaches before and had not received head CT before, CT of head ordered to rule out organic etiology. Head CT result today is negative for acute findings. CBC today shows H/H of 9.5/32.0 which patient states her baseline. Unremarkable chemistry test results. Patient received IV fluid 1 L normal saline, IV Benadryl, Reglan, and Toradol which resolved headache. She was able to tolerate ice chips and denies nausea at this time. Patient discharged to home with Zofran so that she can hydrate adequately. We discussed return precautions and advised to follow up with primary care physician next 2-3 days and she verbalized understanding in agreement with the treatment plan. <Junior Sauceda, DO - Last Filed: 08/14/20 17:54> Lab Data Labs: Lab Results 08/13/20 08/13/20 08/13/20 Range/Units 15:10 15:10 15:10 WBC 6.6 (4.5-11.0) X10^3/uL RBC 5.28 H (4.0-5.2) X10^6/uL Hgb 9.5 L (12.0-16.0) g/dL Hct 32.0 L (36-46) % MCV 60.6 L (80-100) fL MCH 18.0 L (26-34) PG MCHC 29.8 L (30-36) % RDW 20.9 H (11.6-14.8) % Plt Count 187 (150-400) X10^3/uL Neut % (Auto) Not Reportable Lymph % (Auto) Not Reportable [place] % (Auto) Not Reportable Eos % (Auto) Not Reportable Baso % (Auto) Not Reportable Lymph # (Auto) Not Reportable [place] # (Auto) Not Reportable Baso # (Auto) Not Reportable Total Counted 100 Seg Neutrophils % 57.0 (38-70) % Lymphocytes % (Manual) 38.0 (25-45) % Atypical Lymphs % 2.0 H ( - 0) % Monocytes % (Manual) 2.0 (2-11) % Basophils % (Manual) 1.0 (0-1) % Neutrophils # (Manual) 3762 (5985-1238) /uL Nucleated RBCs 1 H ( - 0) #/Diff Smudge Cells 1+ H RBC Morphology See below Hypochromasia 3+ H Poikilocytosis 2+ H Anisocytosis 2+ H Microcytosis 2+ H Target Cells 2+ H Tear Drop Cells 2+ H Ovalocytes 2+ H Sodium 136 L (137-145) mmol/L Potassium 3.7 (3.4-5.1) mmol/L Chloride 101 (98-107) mmol/L Carbon Dioxide 27 (22-32) mmol/L BUN 14 (7-17) mg/dL Creatinine 0.47 L (0.52-1.04) mg/dL Estimated GFR > 60.0 (>60) mL/min BUN/Creatinine Ratio 29.8 H (6-22) Glucose 88 (70-100) mg/dL Calcium 8.9 (8.4-10.2) mg/dL Magnesium 2.2 (1.6-2.3) mg/dL Discharge Plan Departure Patient Disposition: Home Clinical Impression: Headache Qualifiers: Headache type: unspecified Headache chronicity pattern: acute headache Intractability: not intractable Qualified Code(s): R51.9 - Headache, unspecified Thalassemia Qualifiers: Thalassemia type: unspecified type Qualified Code(s): D56.9 - Thalassemia, unspecified Instructions: Thalassemia, DI for Headache Activity Restrictions/Additional Instructions: You have been diagnosed with [headache, thalassemia. CT of abdomen without acute findings. Labs are assuring except anemia which has been your baseline from the past test]. What to do: *Take your medications as directed. Please take Zofran as needed for nausea and vomiting. Please take [id number] Tylenol and or Motrin as needed for discomfort. Zofran has been transmitted to [facility] in [place]. *Follow up with your primary care provider in 2-3 days, call for an appointment. Let them know you were seen in the ED and that we asked you to be seen in follow up. *Return to ED if you have any new, worsening, or concerning symptoms, such as [worsening headache, signs and symptoms for stroke, chest pain, breathing difficulty, unable to tolerate fluids or any acute concerns]. Prescriptions: New ondansetron 4 mg tablet,disintegrating 4 mg PO Q8H PRN (Reason: nausea and vomiting) Qty: 7 RF: 0 No Action ondansetron 4 mg tablet,disintegrating 4 mg PO Q6H PRN (Reason: nausea and vomiting) Qty: 14 RF: 0 Stand Alone Forms: Work Release Note <Junior Sauceda DO - Last Filed: 08/14/20 17:54> Cosign ED Attending Cosignature Attestation: I was immediately available in the department for consultation. This documentation has been reviewed and I agree with assessment and plan. Supervised by Junior Sauceda DO
[2020-08-13 15:53] LABS: Magnesium 2.2 mg/dL (1.6-2.3)
[2020-08-13 16:08] LABS: Hemoglobin 9.5 g/dL (12.0-16.0); Mean Corpuscular HGB Conc 29.8 % (30-36); Mean Corpuscular Volume 60.6 fL (80-100); Platelet Count 187 X10^3/uL (150-400); Red Blood Cell Count 5.28 X10^6/uL (4.0-5.2); Red Cell Distribution Width 20.9 % (11.6-14.8); White Blood Cell Count 6.6 X10^3/uL (4.5-11.0)
[2020-08-13 16:09] LABS: Add Manual Diff / Slide Review YES
[2020-08-13 16:28] LABS: Anisocytosis 2+; Hypochromasia 3+; Neutrophils Absolute Manual 3762 /uL (3000-5900); Nucleated Red Blood Cells 1 #/Diff; Poikilocytosis 2+; Total Cells Counted 100
[2020-08-13 16:29] LABS: Microcytosis 2+; Ovalocytes 2+; Smudge Cells 1+; Target Cells 2+; Tear Drop Cells 2+
[2020-08-13 17:38] VITALS: BP 114/71; PULSE 72; RESP 17; TEMP 36.8; O2SAT 100
--- NOTE | 2020-08-13 17:44 | PC.NURSE ---
pt states she is feeling better. pt drank water, is not nauseated.
== END 2020-08-13 17:45 | disposition home or self-care (01) ==
PROVIDERS: Emergency Provider Nurse Practitioner Family
DX: R51.9 Headache, unspecified (principal); D56.9 Thalassemia, unspecified; R11.2 Nausea with vomiting, unspecified; R42 Dizziness and giddiness
CPT/HCPCS: 36415; 70450; 80048; 83735; 85007; 85025; 96361; 96374; 96375; 99283; 99284; J1200; J1885; J2765

== ENCOUNTER 2020-10-28 11:52 | Emergency (ER) | payer OTHER, SELFPAY ==
[2020-10-28] VITALS (14 sets, daily range): BP systolic 99–167; BP diastolic 55–109; PULSE 69–88; RESP 16; TEMP 37.4; O2SAT 95–100; BMI 24.3
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
--- NOTE | 2020-10-28 12:37 | DI.CT.S_ITS ---
PROCEDURE: CT FACIAL BONES WO CON INDICATIONS: difficulty with EOMI on exam TECHNIQUE: Noncontrast 2.5 mm thick axial images acquired from the mandible through the frontal sinuses, with coronal and sagittal reformatting. For radiation dose reduction, the following was used: automated exposure control, adjustment of mA and/or kV according to patient size. COMPARISON: [facility], CT, CT HEAD/BRAIN WO CON, 08/13/2020, 15:10. [facility], CR, XR CHEST 1V, 10/28/2020, 12:45. [facility], CT, CT CERVICAL SPINE WO CON, 10/28/2020, 12:43. [facility], CT, CT HEAD/BRAIN WO CON, 10/28/2020, 12:43. FINDINGS: Image quality: Excellent. Bones and teeth: Orbital stallings are intact. Specifically, no orbital blowout fractures can be seen. Sinus stallings show no fracture or deformity. Nasal bones and septum are intact. Visualized portions of the mandible demonstrate no fractures or subluxation. Zygomatic arches are intact. Pterygoid plates are intact. Visualized portions of the skull base and auditory canals are intact. Poor dentition is noted. There is an impacted tooth seen within the left maxilla anteriorly. Sinuses: Paranasal sinuses are aerated, without fluid levels, mucosal thickening, or mucoceles. Mastoid air cells are aerated. There is a left-sided johanna bullosa. Mild S shaped nasal septal deviation can be seen. Soft tissues: In this patient with this given history, scrutiny is given to No edema, masses, or fluid collections. No enlarged lymph nodes. No soft tissue lacerations or debris. Vascular: Visualized vascular structures appear normal in the absence of contrast. Bony vascular foramina and canals are intact. IMPRESSION: Negative for fracture. No orbital blow-out fracture. No intraorbital abnormality can be seen. No findings extraocular muscular entrapment can be seen. Dictated by: Jose Hanna M.D. on 10/28/2020 at 12:14 Approved by: Jose Hanna M.D. on 10/28/2020 at 12:17
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
[2020-10-28 12:57] LABS: Hematocrit 33.3 % (36-46); Mean Corpuscular Hemoglobin 17.8 PG (26-34); Mean Corpuscular Volume 59.3 fL (80-100); Platelet Count 170 X10^3/uL (150-400); Red Blood Cell Count 5.62 X10^6/uL (4.0-5.2); Red Cell Distribution Width 23.8 % (11.6-14.8); White Blood Cell Count 5.4 X10^3/uL (4.5-11.0)
[2020-10-28] MEDS: ACETAMINOPHEN 325 MG TABLET 975 MG PO (12:57)
[2020-10-28] MEDS: ONDANSETRON 4 MG/2 ML INJ IV (12:58)
[2020-10-28 12:59] LABS: Add Manual Diff / Slide Review YES
[2020-10-28 13:00] LABS: Prothrombin Time 10.8 SECONDS (10.1-12.7)
[2020-10-28 13:02] LABS: PTT Partial Thromboplastin Tim 32 SECONDS (26.4-36.2)
[2020-10-28 13:04] LABS: Alanine Aminotransferase 15 IU/L (<35); Albumin 4.7 g/dL (3.5-5.0); Albumin Globulin Ratio 1.4 (1.0-2.8); Alkaline Phosphatase 42 U/L (38-126); Aspartate Aminotransferase 24 IU/L (14-36); BUN Creatinine Ratio 21.2 (6-22); Bilirubin Total 0.8 mg/dL (0.2-1.3); Blood Urea Nitrogen 14 mg/dL (7-17); Carbon Dioxide 25 mmol/L (22-32); Chloride 104 mmol/L (98-107); Estimated Glomerular Filt Rate > 60.0 mL/min (>60); Ethanol (ETOH) < 10 mg/dL; Globulin 3.4 g/dL (1.7-4.1); Glucose 105 mg/dL (70-100); HEMOLYSIS < 15 (0-50); Lipase 123 U/L (23-300); Potassium 4.2 mmol/L (3.4-5.1); Sodium 137 mmol/L (137-145); Total Protein 8.1 g/dL (6.3-8.2)
[2020-10-28 13:33] LABS: Anisocytosis 3+; Hypochromasia 3+; Neutrophils Absolute Manual 3294 /uL (3000-5900); Poikilocytosis 3+; Total Cells Counted 100
[2020-10-28 13:34] LABS: Polychromasia 1+; Target Cells 2+
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
[2020-10-28 16:12] LABS: UR Morphine/Opiate cutoff 300 Negative (Negative); Ur Creatinine Normal (Normal); Ur Specific Gravity Normal (Normal); Urine Amphetamines Negative (Negative); Urine Barbiturates Negative (Negative); Urine Benzodiazepines Negative (Negative); Urine Cocaine Negative (Negative); Urine MDMA Negative (Negative); Urine Methadone Negative (Negative); Urine Methamphetamines Negative (Negative); Urine Oxycodone Negative (Negative); Urine Phencyclidine Negative (Negative); Urine Tetrahydrocannabinol Negative (Negative); Urine Tricyclic Antidepressant Negative (Negative); Urine pH Normal (Normal)
== END 2020-10-28 18:30 | disposition home or self-care (01) ==
PROVIDERS: Emergency Provider Emergency Medicine
DX: H49.02 Third [oculomotor] nerve palsy, left eye (principal); R10.84 Generalized abdominal pain; M54.2 Cervicalgia; V89.2XXA Person injured in unspecified motor-vehicle accident, traffic, initial encounter
CPT/HCPCS: 36415; 70450; 70486; 70496; 70498; 70551; 71045; 72125; 76700; 80053; 80305; 80320; 81003; 81025; 83690; 85007; 85025; 85610; 85730; 96374; 99284; J2405; Q9967

== ENCOUNTER 2021-03-05 15:16 | Emergency (ER) | payer OTHER, SELFPAY ==
[2021-03-05 15:20] VITALS: BP 148/79; PULSE 73; RESP 16; TEMP 36.4; O2SAT 100
--- NOTE | 2021-03-05 15:25 | DI.RAD.S_ITS ---
PROCEDURE: XR SHOULDER LT MIN 2V INDICATIONS: pain with abduction TECHNIQUE: 3 views of the shoulder were acquired. COMPARISON: None. FINDINGS: Bones: No fractures or dislocations. No suspicious bony lesions. Visualized ribs appear intact. Coracoclavicular and acromioclavicular intervals are maintained. Soft tissues: No suspicious soft tissue calcifications. IMPRESSION: Left shoulder without acute fracture or dislocation. Dictated by: Chris Werner M.D. on 03/05/2021 at 15:44 Approved by: Chris Werner M.D. on 03/05/2021 at 15:47
[2021-03-05] MEDS: KETOROLAC 30 MG/ML VIAL 15 MG IM (16:59)
--- NOTE | 2021-03-07 14:42 | ED_ITS ---
HPI - Trauma <Solitario Amezquita PA-C - Last Filed: 03/07/21 14:59> General Chief Complaint: Extremity Injury, Upper Stated Complaint: lt arm pain, radiating from neck to hand Time Seen by Provider: 03/05/21 16:21 Source: patient Mode of arrival: Ambulatory History of Present Illness HPI narrative: 35-year-old female with past medical history thalassemia presents to the ED with 2 days of left shoulder pain. Patient states she was sliding down a hill, constantly trying to stop herself with her hands outstretched to the ground. Patient denies numbness, tingling, weakness. Endorses shoulder pain and pain when moving the left arm. Denies fever, chills, chest pain, shortness of breath, cough, nausea, vomiting, abdominal pain, dysuria, lightheadedness, dizziness, syncope. Denies head strike. Denies loss of consciousness. Related Data Previous Rx's Medication Instructions Recorded ondansetron 4 mg disintegrating 4 mg PO Q6H PRN #14 tab 12/28/19 tablet ondansetron 4 mg disintegrating 4 mg PO Q8H PRN #7 tab 08/13/20 tablet ondansetron 4 mg disintegrating 4 mg PO Q6H PRN #10 tab 10/28/20 tablet Allergies Allergy/AdvReac Type Severity Reaction Status Date / Time No Known Drug Allergies Allergy Verified 10/28/20 12:07 Review of Systems <Solitario Amezquita PA-C - Last Filed: 03/07/21 14:59> Constitutional Constitutional: Denies chills, Denies fatigue, Denies fever(s), Denies frequent falls, Denies lethargy and Denies weakness Eyes Eyes: Denies change in vision, Denies eye discharge, Denies irritation and Denies loss of vision ENT Ears, Nose, Mouth, and Throat: Denies change in voice, Denies dizziness, Denies neck pain, Denies sore throat and Denies throat swelling Cardiovascular Cardiovascular: Denies chest pain, Denies irregular heart rhythm, Denies lightheadedness, Denies palpitations, Denies dyspnea, Denies dyspnea on exertion and Denies orthopnea Respiratory Respiratory: Denies cough, Denies dyspnea, Denies dyspnea on exertion and Denies wheezing Gastrointestinal Gastrointestinal: Denies abdominal pain, Denies change in bowel habits, Denies diarrhea, Denies nausea and Denies vomiting Musculoskeletal Musculoskeletal: Denies neck pain and Denies numbness Comments: Left arm and shoulder pain. No numbness, tingling, weakness Integumentary/Breasts Skin/Breast: Denies pruritus, Denies erythema, Denies rash and Denies wounds Neurologic Neurologic: Denies behavioral changes, Denies confusion, Denies dizziness, Denies frequent falls, Denies loss of vision, Denies numbness and Denies weakness Psychiatric Psychiatric: Denies anxiety, Denies behavioral changes, Denies confusion, Denies depression, Denies homicidal ideation and Denies suicidal ideation Endocrine Endocrine: Denies fatigue, Denies flushing and Denies palpitations Hematologic/Lymphatic Hematologic/Lymphatic: Denies easy bruising Allergic/Immunologic Allergic/Immunologic: Denies urticaria, Denies throat swelling and Denies wheezing Patient History <Solitario Amezquita PA-C - Last Filed: 03/07/21 14:59> Social History Smoking Status: Never smoker Smoking Status: Never smoker alcohol intake frequency: holidays/special occasions only Substance Use Type: does not use Exam <Solitario Amezquita PA-C - Last Filed: 03/07/21 14:59> Initial Vital Signs Initial Vital Signs: Vital Signs Temperature 97.6 F 03/05/21 15:20 Pulse Rate 73 03/05/21 15:20 Respiratory Rate 16 03/05/21 15:20 Blood Pressure 148/79 H 03/05/21 15:20 Pulse Oximetry 100 03/05/21 15:20 Const General: cooperative HENMT Head: normocephalic and atraumatic Ears: external ears normal and TM's normal bilaterally Nose: external nose normal and No nasal discharge Face and sinus: sinuses nontender, face symmetric, no sinus tenderness and No dry mucous membranes Mouth: oral mucosae normal and moist mucous membranes Teeth and gingiva: dentition normal Throat: tonsils normal and uvula midline Eyes General: appearance normal, both eyes and all related structures Eyelids: eyelids normal Conjunctivae: conjunctivae normal Sclera: sclerae normal Pupils: PERRL EOM: EOM intact bilaterally Neck Neck: normal visual inspection, trachea midline, No lymphadenopathy, No midline deformity and No JVD Lymphatic: No lymphedema Chest Chest: normal inspection of the chest Resp Effort & Inspection: normal respiratory effort, able to speak in complete sentences, no respiratory distress and no use of accessory muscles Auscultation: clear to auscultation bilaterally, no rales, no rhonchi and no wheezes Cardio Rate: regular rate Rhythm: regular rhythm Heart Sounds: no click, no gallops, no murmurs and no rubs Pulses: normal peripheral pulses GI Inspection: non-distended Palpation: soft, no hepatosplenomegaly, No guarding, No pulsatile mass and No tender Auscultation: normal bowel sounds Back/Spine/Pelvis Back: No CVA tenderness Cervical Spine: cervical ROM normal and No pain with cervical ROM Thoracic/Lumbar Spine: thoracic and lumbar spine normal to inspection Skin General: no rashes or lesions noted, No jaundice and No petechiae Neuro General: patient alert, patient oriented x3, gait normal and no focal motor deficits Speech: speech normal Extrem General: full ROM, no clubbing, cyanosis or edema, no pedal edema and no calf tenderness Other: Left shoulder tender to palpation. No obvious deformities, bruising. Strength and sensation intact, neurovascularly intact. Range of motion of left arm limited by pain. Patient able to touch left hand to right shoulder. Psych Appearance: well kempt Mental Status: mental status grossly normal Attitude: cooperative Thought Content: normal and suicidality Judgment: judgment good <Junior Sauceda DO - Last Filed: 03/07/21 16:44> Initial Vital Signs Initial Vital Signs: Vital Signs Temperature 97.6 F 03/05/21 15:20 Pulse Rate 73 03/05/21 15:20 Respiratory Rate 16 03/05/21 15:20 Blood Pressure 148/79 H 03/05/21 15:20 Pulse Oximetry 100 03/05/21 15:20 Course <Solitario Amezquita PA-C - Last Filed: 03/07/21 14:59> Course Course Narrative: Patient's pain improved with ketorolac. X-ray negative for fracture/dislocation. Patient discharged home with ED return precautions, ortho follow-up. Orders Ordered: Discontinued Medications Ketorolac Tromethamine (Ketorolac 30 Mg/Ml Vial) 15 mg IM NOW ONE Stop: 03/05/21 16:47 Last Admin: 03/05/21 16:59 Dose: 15 mg Documented by: ERUM <Junior Sauceda DO - Last Filed: 03/07/21 16:44> Orders Ordered: Discontinued Medications Ketorolac Tromethamine (Ketorolac 30 Mg/Ml Vial) 15 mg IM NOW ONE Stop: 03/05/21 16:47 Last Admin: 03/05/21 16:59 Dose: 15 mg Documented by: ERUM [facility] - Trauma <Solitario Amezquita PA-C - Last Filed: 03/07/21 14:59> Imaging Data Shoulder x-ray: Radiologist's Impression: PROCEDURE:? XR SHOULDER LT MIN 2V ? INDICATIONS:? pain with abduction ? TECHNIQUE:? 3 views of the shoulder were acquired.? ? COMPARISON:? None. ? FINDINGS:? ? Bones:? No fractures or dislocations.? No suspicious bony lesions.? Visualized ribs appear intact.? Coracoclavicular and acromioclavicular intervals are maintained. ? Soft tissues:? No suspicious soft tissue calcifications.? ? IMPRESSION:? Left shoulder without acute fracture or dislocation. ? ? Dictated by: Chris Werner M.D. on 03/05/2021 at 15:44 ? ? Approved by: Chris Werner M.D. on 03/05/2021 at 15:47 ? [facility] Narrative Medical decision making narrative: 35-year-old female with past medical history thalassemia presents to the ED with 2 days of left shoulder pain. Concern for shoulder fracture / dislocation versus sprain/ strain. Will order x-rays, give ketorolac for pain. Will reassess. Likely discharge home. Discharge Plan Departure Patient Disposition: Home Clinical Impression: Left shoulder pain Qualifiers: Chronicity: acute Qualified Code(s): M25.512 - Pain in left shoulder Instructions: DI for Shoulder Sprain Activity Restrictions/Additional Instructions: You were evaluated in the ED today for left-sided shoulder pain. Your x-ray showed no evidence of fractures or dislocations. Your pain is likely caused due to a shoulder sprain/strain. You can continue to take ibuprofen, apply ice or heat, keep the arm in a sling. Return to the ED if your symptoms worsen, you experience weakness, tingling, numbness. Prescriptions: No Action ondansetron 4 mg tablet,disintegrating 4 mg PO Q8H PRN (Reason: nausea and vomiting) Qty: 7 RF: 0 ondansetron 4 mg tablet,disintegrating 4 mg PO Q6H PRN (Reason: nausea and vomiting) Qty: 14 RF: 0 ondansetron 4 mg tablet,disintegrating 4 mg PO Q6H PRN (Reason: nausea and vomiting) Qty: 10 RF: 0 Stand Alone Forms: Work Release Note <Junior Sauceda DO - Last Filed: 03/07/21 16:44> Cosign ED Attending Cosignature Attestation: I was immediately available in the department for consultation. This documentation has been reviewed and I agree with assessment and plan. Supervised by Junior Sauceda DO
== END 2021-03-05 17:12 | disposition home or self-care (01) ==
PROVIDERS: Emergency Provider Student in an Organized Health Care Education/Training Program
DX: M25.512 Pain in left shoulder (principal); W19.XXXA Unspecified fall, initial encounter
CPT/HCPCS: 73030; 96372; 99283; J1885